=== PATIENT | male | born 1955 | race Caucasian/White ===

== ENCOUNTER 2024-09-12 15:26 | Emergency (ER) | payer MEDICARE ==
[2024-09-12 15:44] VITALS: RESP 18
[2024-09-12] MEDS: HYDROcodone/APAP 7.5-325MG 1 EACH TAB PO ONE (16:12)
[2024-09-12] MEDS: KETOROLAC 15 MG/ML 1 ML VIAL IM STA (16:13)
[2024-09-12] MEDS: ORPHENADRINE 30 MG/ML 2 ML VIAL IM STA (16:13)
--- NOTE | 2024-09-12 16:36 | XR ---
EXAMINATION TYPE: XR knee complete LT DATE OF EXAM: 09/12/2024 4:19 PM COMPARISON: None CLINICAL INDICATION: Male, 69 years old with history of Pain; [facility] TECHNIQUE: XR knee complete LT; examined in Frontal, lateral and oblique projections. FINDINGS: No evidence of any acute osseous pathology, soft tissue swelling, or joint effusion is no cortney. Tricompartmental osteophyte formation involving the femoral condyles, tibial plateau and patella . Mild joint space narrowing. Fixation juliette partially visualized and intact. Possible radiopaque joint body in the intercondylar eminence, Measuring 4 mm. IMPRESSION: 1. No acute osseous pathology. 2. Moderate tricompartmental osteoarthritic changes. 3. Joint body suggested. Consider further evaluation with MRI. [facility], , 09/12/2024 4:34 PM
--- NOTE | 2024-09-12 16:50 | ED ---
Extremity Problem HPI - General Chief complaint: Extremity Injury, Lower Stated complaint: L Knee Pain Time Seen by Provider: 09/12/24 15:58 Source: patient, RN notes reviewed Mode of arrival: ambulatory Limitations: no limitations - History of Present Illness Initial comments: This is a 69-year-old male who presents to the emergency department for left knee pain. States that it started yesterday. Denies any injuries. He is on his feet a lot at work. States that he has noticed it starts to catch or "clunk" when he walks. This is making it difficult to fully bend the leg. Not taking anything for pain control. He has noticed pain both in the front and back of the knee starting to radiate down into the calf. MD Complaint: extremity pain - Related Data Previous Rx's Medication Instructions Recorded Ibuprofen [Motrin] 800 mg PO Q8H PRN #30 tab 09/12/24 Allergies Allergy/AdvReac Type Severity Reaction Status Date / Time mirtazapine AdvReac Itching Verified 09/12/24 15:43 quetiapine [From Seroquel] AdvReac Itching Verified 09/12/24 15:43 Review of Systems ROS Statement: Those systems with pertinent positive or pertinent negative responses have been documented in the HPI. ROS Other: All systems not noted in ROS Statement are negative. Past Medical History History of Any Multi-Drug Resistant Organisms: None Reported Additional Past Surgical History / Comment(s): orthopedic surgery on left knee, drained several times Smoking Status: Current every day smoker Past Alcohol Use History: Abuse, Daily Past Drug Use History: Marijuana General Exam Limitations: no limitations General appearance: alert, in no apparent distress Head exam: Present: atraumatic, normocephalic, normal inspection Respiratory exam: Present: normal lung sounds bilaterally. Absent: respiratory distress, wheezes, rales, rhonchi, stridor Cardiovascular Exam: Present: regular rate, normal rhythm, normal heart sounds. Absent: systolic murmur, diastolic murmur, rubs, gallop, clicks Extremities exam: Present: other (Tenderness to palpation over the left knee. Range of motion limited by pain. 2+ DP and PT pulses) Neurological exam: Present: alert, oriented X3, CN II-XII intact Psychiatric exam: Present: normal affect, normal mood Skin exam: Present: warm, dry, intact, normal color. Absent: rash Course Vital Signs 10/27/24 10/27/24 15:37 17:36 Temperature 97.5 F L 98.1 F Pulse Rate 67 62 Respiratory 18 18 Rate Blood Pressure 135/81 130/80 O2 Sat by Pulse 95 97 Oximetry Medical Decision Making - Medical Decision Making This is a 69 year old male who presents to the emergency department for left knee pain. Was pt. sent in by a medical professional or institution? @ -No Did you speak to anyone other than the patient for history? @ -No Did you review nursing and triage notes? @ -Yes, and I agree, it is accurate with regards to the patient's symptoms. Were old charts reviewed? @ -No Differential Diagnosis? @ -Differential Musculoskeletal Muscular strain, contusion, ligament sprain, fracture, arthritis, septic arthritis, bursitis, cellulitis, muscle spasm, nerve compression, DVT, arterial occlusion, herpes zoster, electrolyte abnormality, tumor.... This is not meant to be in all inclusive list EKG interpreted by me (3pts min.)? @ -Not obtained X-rays interpreted by me (1pt min.)? @ -X-ray of the left knee obtained. My interpretation identifies no acute fractures. CT interpreted by me (1pt min.)? @ -Not obtained U/S interpreted by me (1pt. min.)? @ -Duplex ultrasound of the left lower extremity obtained. My interpretation identifies no evidence of a DVT. What testing was considered but not performed? (CT, X-rays, U/S, labs)? Why? @ -None What meds were considered but not given? Why? @ -None Did you discuss the management of the patient with other professionals? @ -No Did you reconcile home meds? @ -No Was smoking cessation discussed for >3mins.? @ -No Was critical care preformed (if so, how long)? @ -No Were there social determinants of health that impacted care today? How? (Homelessness, low income, unemployed, alcoholism, drug addiction, transportation, low edu. Level, literacy, decrease access to med. care, senior care, rehab)? @ -No Was there de-escalation of care discussed even if they declined? (Discuss DNR or withdrawal of care, Hospice)? @ -No What co-morbidities impacted this encounter? (DM, HTN, Smoking, COPD, CAD, Cancer, CVA, Hep., AIDS, mental health diagnosis, sleep apnea, morbid obesity)? @ -None Was patient admitted / discharged? @ -Discharged. X-ray of the left knee demonstrates moderate tricompartmental osteoarthritis and a possible loose joint body. Duplex ultrasound of the left lower extremity reveals no acute process. Findings reviewed with the patient. Pain was treated in the emergency department. He was given a knee immobilizer for support. He declined the need for any crutches. Prescription for ibuprofen provided. He was also given information for follow-up with orthopedics for further evaluation. Patient discharged home in stable condition. Case discussed with ED attending Dr. Frank. Return precautions reviewed in depth, the patient is instructed to return to the emergency department with any new, worsening, or concerning symptoms. Patient verbalized understanding. Undiagnosed new problem with uncertain prognosis? @ -None Drug Therapy requiring intensive monitoring for toxicity (Heparin, Nitro, Insulin, Cardizem)? @ -None Were any procedures done? @ -None Diagnosis/symptom? @ -Left knee pain, loose joint body in left knee Acute, or Chronic, or Acute on Chronic? @ -Acute Uncomplicated (without systemic symptoms) or Complicated (systemic symptoms)? @ -Uncomplicated Side effects of treatment? @ -None Exacerbation, Progression, or Severe Exacerbation] @ -Not applicable Poses a threat to life or bodily function? @ -This is limiting his ability to ambulate. - Radiology Data Radiology results: report reviewed, image reviewed Disposition Clinical Impression: Chondral loose body of knee joint Disposition: HOME SELF-CARE Instructions (If sedation given, give patient instructions): Knee Pain (ED) Additional Instructions: Return to the emergency department with any new, worsening, or concerning symptoms. Alternate with ibuprofen and Tylenol as needed for pain relief. Use the knee immobilizer provided as needed. You can also purchase an [id number] knee brace. Contact the orthopedic providers listed below, you can follow-up with either of them. Let them know that you were seen in the emergency department for knee pain and found to have a loose joint body. Follow up with your primary care provider in 1-2 days. Prescriptions: Ibuprofen [Motrin] 800 mg PO Q8H PRN #30 tab PRN Reason: Pain Is patient prescribed a controlled substance at d/c from ED?: No Referrals: Hernesto Espinoza DO [Primary Care Provider] - 1-2 days Ashkan Frank MD [STAFF PHYSICIAN] - 1-2 days Rian Luciano MD [Medical Doctor] - 1-2 days Time of Disposition: 17:17
--- NOTE | 2024-09-12 17:08 | US ---
EXAMINATION TYPE: US venous doppler duplex LE LT DATE OF EXAM: 09/12/2024 4:58 PM COMPARISON: NONE CLINICAL INDICATION: Male, 69 years old with history of Pain; Patient states knee starting popping wh en walking last night. No redness. No swelling. , Pain, Swelling TECHNIQUE: The lower extremity deep venous system is examined utilizing real time linear array sonog [place] with graded compression, color doppler sonography, and spectral doppler. SIDE PERFORMED: Left FINDINGS: VESSELS IMAGED: Common Femoral Vein Deep Femoral Vein Greater Saphenous Vein * Femoral Vein Popliteal Vein Small Saphenous Vein * Proximal Calf Veins (* superficial vessels) Left Leg: Negative for DVT at time of scan IMPRESSION: No ultrasound evidence for deep venous thrombosis. [facility], Workstation: [id number], 09/12/2024 5:05 PM
[2024-09-12] MEDS: IBUPROFEN 600 MG STARTER PACK 4 TAB BTL PO STA (17:19)
[2024-09-12] MEDS: DEXAMETHASONE SOD PHOSPHATE 10 MG/ML 1 ML VIAL IM STA (17:19)
[2024-09-12] MEDS: ACET/COD 300 MG/30 MG STARTER PACK 6 TAB BTL PO STA (17:20)
[2024-09-12 17:38] VITALS: BP 130/80; PULSE 62; TEMP 98.1
== END 2024-09-12 17:36 | disposition home or self-care (01) ==
LOC: EC 15:26
CPT/HCPCS: 96372; 99283

== ENCOUNTER → 2025-05-24 | Outpatient (CLI) | payer MEDICARE ==
--- NOTE | 2025-05-25 08:48 | CTL ---
EXAMINATION TYPE: CT Low Dose Lung DATE OF EXAM ORDERED: 05/24/2025 COMPARISON: None CLINICAL INDICATION: Male, 69 years old with history of Z12.2 SCREENING, Z87.891 HX NICOTINE DEPENDEN CE; PHH, PT SMOKED FOR 30+ YRS, QUIT FOR 10 YRS. NOW SMOKES 1PK/DAY X 3 YRS, Lung cancer screening, H istory of Smoking/tobacco use. TECHNIQUE: Low dose computed tomography scan was performed through the chest at 1 mm thick sections a nd reconstructed images in multiple planes at 1 mm and [address] DLP: 95.[address] CTDI: 2.4 mGy Automated exposure control for dose reduction was used. CT DIAGNOSTIC QUALITY: Satisfactory FINDINGS: Nodules: Few pulmonary nodules with examples including a peripheral posterior left upper lobe 2.6 mm nodule (s eries 6, image 20), right posterior mid lung 1.7 mm pulmonary nodule (series 6, image 28), right lowe r lobe 5.6 cm solid pulmonary nodule (series 6, image 33), and a right anterior midline 5.9 mm pulmon dimitris nodule (series 6, image 34). LUNGS: COPD: Severity: Mild Fibrosis: Severity: None Lymph nodes: Other findings: RIGHT PLEURAL SPACE: Effusion: None Calcification: None Thickening: None Pneumothorax: None LEFT PLEURAL SPACE: Effusion: None Calcification: None Thickening: None Pneumothorax: None HEART: Heart Size: Normal Coronary Calcification: Small Pericardial Effusion: None OTHER FINDINGS: Upper abdomen: Few simple right renal cysts with largest measuring up to 4.0 cm. Additional right andry al cortical 0.6 cm hyperdense cyst most consistent with a proteinaceous/hemorrhagic cyst. No follow-u p recommended. Bony thorax: None Supraclavicular region: None Other: None IMPRESSION: 1. Few pulmonary nodules measuring up to 5.9 mm. 2. Mild emphysematous change. CT LUNG RAD AND CT CHEST RECOMMENDATION: Lung-Rad 2 Benign Appearance or Behavior: Continue annual sc reening with LDCT in 12 months. S Modifier (other clinically significant findings): None [facility], , 05/25/2025 8:46 AM
== END | disposition home or self-care (01) ==
LOC: RADCTMAIN 16:38
PROVIDERS: ATTEND Family Medicine
DX: Z12.2 Encounter for screening for malignant neoplasm of respiratory organs (principal); J43.9 Emphysema, unspecified; R91.8 Other nonspecific abnormal finding of lung field; Z87.891 Personal history of nicotine dependence
CPT/HCPCS: 71271